=== PATIENT | female | born 2000 | race Caucasian/White ===

== ENCOUNTER 2024-06-03 10:03 | Outpatient (CLI) | payer SELFPAY ==
[2024-06-03 10:50] LABS: Glucose 1 Hour 96 mg/dL (74-100)
== END 2024-06-03 23:59 | disposition home or self-care (01) ==
PROVIDERS: Visit Provider Nurse Practitioner Obstetrics & Gynecology
DX: Z3A.24 24 weeks gestation of pregnancy (principal)
CPT/HCPCS: 36415; 82947